=== PATIENT | female | born 1935 | race Caucasian/White ===

== ENCOUNTER 2018-05-31 10:30 | Inpatient (IN) ==
[2018-07-05] MEDS ORDERED: Chlorhexidine Gluconate 2% 1 Pack (2 Cloths) TOPICAL ONE (06:43)
[2018-07-05] MEDS ORDERED: Metoprolol Tartrate 25 MG Tablet PO ONE (06:43)
[2018-07-05] MEDS ORDERED: Chlorhexidine 4% Topical 120 APPLIC/120 ML Bottle TOPICAL SCH (06:45)
[2018-07-05] MEDS ORDERED: Vancomycin Inj 1,000 MG in Sodium Chlor 0.9% Inj 250 ML IV.SIG SCH (07:00)
[2018-07-05] MEDS ORDERED: Sodium Chlor 0.9% Inj 500 ML IV.SIG SCH (07:00)
[2018-07-05] MEDS ORDERED: ceFAZolin 2 GM Premix Inj 2 GM/50 ML PIGGYBACK IV.SIG SCH (07:00)
[2018-07-05] MEDS ORDERED: Bupivacaine/Epinephrine PF Inj 0.25% 10 ML Vial ONE (07:16)
[2018-07-05] MEDS ORDERED: Bupivacaine/Epinephrine Inj 0.25% 50 ML Vial ONE (07:16)
[2018-07-05] MEDS ORDERED: Succinylcholine Inj 100 MG/5 ML Syringe IV.PUSH ONE (08:59)
[2018-07-05] MEDS ORDERED: Phenylephrine/NS 1000 MCG/10ML Syringe IV.PUSH ONE (08:59)
[2018-07-05] MEDS ORDERED: Lidocaine PF 1% Inj 5 ML Syringe INFILTRATN ONE (08:59)
[2018-07-05] MEDS ORDERED: SODIUM CHLOR 0.9% IV.SIG SCH (09:00)
[2018-07-05] MEDS ORDERED: Sodium Chlor 0.9% Inj 40 ML, Bupivacaine Liposo PF 1.3% Inj 20 ML P-ARTICULR SCH ×2 (09:00)
[2018-07-05] MEDS ORDERED: TRANEXAMIC ACID IV.SIG SCH (09:00)
--- NOTE | 2018-07-05 11:37 | P.OP ---
- Preoperative Diagnosis (1) Osteoarthritis of right knee - Postoperative Diagnosis (1) Osteoarthritis of right knee Date of procedure: 07/05/18 Procedure: Right total knee replacement arthroplasty Anesthesia: GETA Surgeon: Jack Art MD Operation and Findings: EBL: 100 cc INDICATION: This patient presents with long-standing arthritis of the knee. Attachment record documents conservative measures. The patient now presents for surgical treatment. NOTE: Shabana Pat PA-C was present for the entire surgical procedure as my first aid nurse. In my medical opinion her skill and care was necessary for proper management of this patient. TOURNIQUET TIME: 69 minutes COMPANY: [employer] FEMUR: Size 7, right, posterior stabilized TIBIA: Size 6, fixed-bearing PATELLA: 35 mm POLYETHYLENE INSERT: 10 mm PROCEDURE: This patient was brought the operating room and anesthetized in the supine position. The patient was positioned supine on the table. The tourniquet was placed about the thigh, and the leg was scrubbed with alcohol followed by Hibiclens followed by ChloraPrep and draped sterilely. A timeout was done, and antibiotics were given. After exsanguination the tourniquet was inflated to 250 mmHg. An anterior incision was made and a median parapatellar arthrotomy was performed. The patella was released laterally and subluxed allowing freehand cut of the patella which was then sized. A metal cap was placed over the exposed patellar surface for protection. A army helicopter pilot hole was placed in the distal femur allowing a 5 valgus cut removing 10 mm from the distal femur. Anterior posterior and chamfer cuts were made. The posterior stabilize osteotomy was made. The attention was directed to the tibia. Retractors were positioned. The external alignment guide was used allowing the lateral tibia to be used as referencing guide and cut utilizing an oscillating saw taking care to avoid any injury to the surrounding soft tissues. This was sized properly. Trial reduction showed that the insert fit nicely. The patient had range of motion extension 0 flexion 125. A medial release was necessary. The bony surfaces prepared. On the back table 2 packets of methylmethacrylate were mixed. The components were cemented. Excess cement was removed. The tourniquet let down and hemostasis was controlled. The final plastic insert was inserted. Range of motion was the same as previously noted. A drain was brought through a separate stab incision. The arthrotomy was repaired with interrupted #1 Vicryl suture, subcutaneous tissue 2-0 Vicryl suture and skin with metallic rufina A sterile dressing was applied. Sponge counts, needle counts and instrument counts were all correct. The patient tolerated procedure well and was taken to recovery in satisfactory condition. FINDINGS: There was severe osteoarthritis. There was a 10 flexion contracture. We removed 1 mm more distally than normal. We ended up re- cutting the tibia removing a total of 12 mm from the lateral side. The final solution appeared to be excellent
[2018-07-05] MEDS ORDERED: Morphine Inj 4 MG/ML Vial IV.PUSH PRN (11:40)
[2018-07-05] MEDS ORDERED: Post-op Orders (for Pharmacy) OTHER STA (11:40)
[2018-07-05] MEDS ORDERED: Bisacodyl 10 MG Supp RECTAL PRN (11:40)
[2018-07-05] MEDS ORDERED: fentaNYL Citrate Inj 100 MCG/2 ML Ampul ONE (11:54)
[2018-07-05] MEDS ORDERED: *morphine SULFATE 4 MG/ML PERIprocedure ONLY ONE ×2 (12:00→12:50)
[2018-07-05] MEDS ORDERED: *Meperidine Inj 25 MG/ML Vial PERIprocedural Use ONLY ONE (12:05)
--- NOTE | 2018-07-05 13:13 | XR ---
EXAM DATE: 07/05/2018 12:45 PM EDT AGE/SEX: 83 years / Female INDICATIONS: Post op right knee replacement CLINICAL DATA: This is the patient's subsequent encounter. Patient reports that signs and symptoms h ave been present for 1 day and indicates a pain score of Nonresponsive. MEDICAL/SURGICAL HISTORY: None. . right knee replaced COMPARISON: No prior exams available for comparison. FINDINGS: Total knee arthroplasty is in satisfactory position. The alignment is anatomic. CONCLUSION: Postsurgical changes as above. Electronically signed by: Juan Alberto Vicente MD 07/05/2018 1:11 PM EDT
[2018-07-05] MEDS: oxyCODONE/Acetaminophen 10/325 Tablet PO PRN ×2 (14:33→21:16)
[2018-07-05] MEDS ORDERED: Temazepam 15 MG Capsule PO PRN (21:00)
[2018-07-05] MEDS: glipiZIDE 5 MG Tablet PO SCH (21:12)
[2018-07-05] MEDS: Senna/Docusate Sodium 8.6/50 MG Tablet PO SCH (21:12)
[2018-07-05] MEDS: Multivitamin/Minerals Therapeutic Tablet PO SCH (21:12)
[2018-07-06] MEDS: oxyCODONE/Acetaminophen 10/325 Tablet PO PRN ×4 (01:46→18:46)
[2018-07-06 06:52] LABS: Hematocrit 29.4 % (35.0-46.0); Hemoglobin 10.1 gm/dL (11.6-15.3)
[2018-07-06] MEDS: Potassium Chloride 10 MEQ ER Capsule PO SCH (08:55)
[2018-07-06] MEDS: Senna/Docusate Sodium 8.6/50 MG Tablet PO SCH ×2 (08:55→21:27)
[2018-07-06] MEDS: Multivitamin/Minerals Therapeutic Tablet PO SCH ×2 (08:55→21:27)
[2018-07-06] MEDS: dilTIAZem CD 240 MG Capsule PO SCH (08:56)
[2018-07-06] MEDS: glipiZIDE 5 MG Tablet PO SCH ×2 (08:56→21:28)
[2018-07-06] MEDS: Fenofibrate 48 MG Tablet PO SCH (08:57)
[2018-07-06] MEDS: Pantoprazole Sodium 20 MG DR Tablet PO SCH (08:57)
[2018-07-06] MEDS ORDERED: Non-Formulary Drug (Losartan-Hydrochlorothiazide [Losartan-Hydrochlorothiazide] 1 TAB) PO SCH (09:00)
--- NOTE | 2018-07-06 22:23 | P.PNOP ---
Subjective Interval history: Attempted to evaluate patient [id number] but she was in the total joint class. Brief review with her RN showed moderate pain as expected following surgical treatment. No other complaints of new radiating leg symptoms. NO new CP or SOB. Prefers d/c to SNF. Physical Exam Vital signs: Vital Signs 07/06/18 00:00 07/06/18 04:00 07/06/18 08:00 Temperature 98.1 F 98.0 F 98.5 F Pulse Rate 75 88 108 H Respiratory Rate 18 18 18 Blood Pressure 172/77 H 100/72 133/70 Pulse Oximetry 93 L 93 L 92 L 07/06/18 12:00 07/06/18 12:36 07/06/18 15:30 Temperature 98.1 F Pulse Rate 91 H Respiratory Rate 18 Blood Pressure 124/68 Pulse Oximetry 92 L 94 L 94 L 07/06/18 16:00 07/06/18 20:00 Temperature 98.3 F 97.8 F Pulse Rate 99 H 97 H Respiratory Rate 18 17 Blood Pressure 125/61 166/72 H Pulse Oximetry 94 L 95 Intake & Output 07/06/18 07/06/18 07/07/18 06:59 18:59 06:59 Intake Total 1200 / 1200 2160 / 2160 Balance 1200 / 1200 2160 / 2160 Weight 95 kg Intake: IV 1200 / 1200 900 / 900 LR 1000 mL Inj 1,000 ML @ 80 1000 / 1000 mls/hr IV.CONT .[id number] [facility] Rx# :[id number] LR 1000 mL Inj 1,000 ML @ 30 900 / 900 mls/hr IV.SIG .Q24H [facility] Rx#: [id number] Ancef Inj 1,000 MG In NS Inj 200 / 200 100 ML @ 200 mls/hr IV.SIG Q6H [facility] Rx#:[id number] Oral 1260 / 1260 Other: # Voids 3 4 Date of Last Bowel Movement 07/04/18 07/04/18 # Bowel Movements 0 Narrative: Exam unable to be performed as patient was in total joint class Results - Labs CBC & Chem 7: 07/06/18 05:47 Laboratory Results - last 24 hr 07/06/18 05:47 Hgb 10.1 L Hct 29.4 L - Procedures Right total knee arthroplasty Assessment and Plan - Ortho Post Op Day # 1 - Assessment and Plan pod#1 s/p R TKA Pt was not assessed as she was in the total joint class. RN states pain moderately controlled. Continue PO pain meds. Oxycodone for pain control. Eliquis as written. Hold dressing changes unless saturated. PT - WBAT RLE. TKA protocol. CKS when in bed for 3-4 weeks. D/C planning, likely SNF wednesday.
--- NOTE | 2018-07-06 22:24 | P.DS ---
Date of admission: 07/05/18 06:15 Primary care physician: No Primary Care Physician Attending physician on discharge: Jack Art Anticipated date of discharge: 07/08/18 Brief History from admission: Ms. Nixon is an 83-year-old female who has had ongoing right knee pain for approximately 6-7 months. She states this increased substantially after a fall. She pursued using ice and rest with no avail. She spoke to her primary care physician who ordered x-rays showing advanced arthritis. She was seen by Dr. Jack Art March 16, 2018. She was given a cortisone injection. She was not prescribed nonsteroidals as she was already on an anticoagulant. She began using her cane on a regular basis. Despite attempts at limited activity her function continued to decline. She discussed treatment options with her primary care physician who cleared her for surgical treatment. It was recommended that she pursue right total knee arthroplasty. Patient agreed and now presents for the above. DS: Diagnosis - Discharge Diagnosis (1) Osteoarthritis of right knee Status: Acute DS: Medications - Discharge Medications Prescriptions: apixaban [Eliquis] 2.5 mg PO BID #10 tab oxycodone-acetaminophen 1 tab PO Q4H PRN #42 tab PRN Reason: Acute Pain DS: Summary Hospital Course: Surgical treatment was performed on the day of admission without complication. The patient recovered well in PACU and was transferred to the orthopedic floor. IV and oral medications were supplied. The patient was compliant with physical therapy and all total knee precautions. After 3 days she was found to be stable and [facility]. She was encouraged to continue physical therapy, to elevate the operative limb and ice it 2-3 times daily, and to pursue a high fiber diet. She is given a prescription of oxycodone and instructed to return to her [facility]. - Time Spent with Patient Total time spent providing and/or coordinating discharge services: Greater than 30 minutes - Quality: VTE Deep Vein Thrombosis/Pulmonary Embolism Present on Admission: No Exam Vital signs: Vital Signs 07/06/18 00:00 07/06/18 04:00 07/06/18 08:00 Temperature 98.1 F 98.0 F 98.5 F Pulse Rate 75 88 108 H Respiratory Rate 18 18 18 Blood Pressure 172/77 H 100/72 133/70 Pulse Oximetry 93 L 93 L 92 L 07/06/18 12:00 07/06/18 12:36 07/06/18 15:30 Temperature 98.1 F Pulse Rate 91 H Respiratory Rate 18 Blood Pressure 124/68 Pulse Oximetry 92 L 94 L 94 L 07/06/18 16:00 07/06/18 20:00 Temperature 98.3 F 97.8 F Pulse Rate 99 H 97 H Respiratory Rate 18 17 Blood Pressure 125/61 166/72 H Pulse Oximetry 94 L 95 Intake & Output 07/06/18 07/06/18 07/07/18 06:59 18:59 06:59 Intake Total 1200 / 1200 2160 / 2160 Balance 1200 / 1200 2160 / 2160 Weight 95 kg Intake: IV 1200 / 1200 900 / 900 LR 1000 mL Inj 1,000 ML @ 80 1000 / 1000 mls/hr IV.CONT .[id number] [facility] Rx# :[id number] LR 1000 mL Inj 1,000 ML @ 30 900 / 900 mls/hr IV.SIG .Q24H [facility] Rx#: [id number] Ancef Inj 1,000 MG In NS Inj 200 / 200 100 ML @ 200 mls/hr IV.SIG Q6H [facility] Rx#:[id number] Oral 1260 / 1260 Other: # Voids 3 4 Date of Last Bowel Movement 07/04/18 07/04/18 # Bowel Movements 0 Narrative: Laying in bed With spouse/family NAD RLE Knee dressing intact, no new drainage, mild swelling +motor at distal, +sens, +nvi Neg homans - Constitutional no acute distress Results Procedures completed during hospitalization: Right total knee arthroplasty Labs on day of discharge: Labs from last 24 hours 07/06/18 05:47 Hgb 10.1 L Hct 29.4 L - Impressions ITS Impressions Knee X-Ray 07/05/18 11:40 CONCLUSION: Postsurgical changes as above. Discharge Plan - Discharge Disposition Patient Disposition: Discharge to SNF - Discharge Condition Condition: Good - Discharge Order Discharge Orders: Discharge Order (Routine); Ordered 07/08/18 Ordered By: Jack Art - Physicians Team Primary Care Provider: Primary Care Physici,No Attending Provider: Jack Art Other Providers: [employer] ; [facility] ; [facility] - Rxs /Orders / Referrals /Forms Prescriptions: New apixaban [Eliquis] 2.5 mg Tablet 2.5 mg PO BID Qty: 10 RF: 0 oxycodone-acetaminophen 10-325 mg Tablet 1 tab PO Q4H PRN (Reason: Acute Pain) Qty: 42 RF: 0 Continue albuterol sulfate [Ventolin HFA] 90 mcg/actuation Hfa Aerosol Inhaler 1 puff INHALATION Q4-6H PRN (Reason: Adequate Ventilation) calcium carbonate-vitamin D3 [Calcium 500 + D] 500 mg(1,250mg) -200 unit Tablet 1 tab PO BID diltiazem HCl [Tiazac] 240 mg Capsule,Extended Release 24 Hr 240 mg PO DAILY fenofibrate 54 mg Tablet 54 mg PO DAILY glipizide 5 mg Tablet 5 mg PO BID hydrocodone bitartrate 15 mg Capsule, Oral Only, Er 12hr 7.5 mg PO Q8HR PRN (Reason: Acute Pain) linagliptin [Tradjenta] 5 mg Tablet 5 mg PO DAILY losartan-hydrochlorothiazide 100-12.5 mg Tablet 1 tab PO DAILY omeprazole 20 mg Capsule,Delayed Release(Dr/Ec) 20 mg PO DAILY potassium chloride 10 mEq Capsule, Extended Release 10 meq PO DAILY rosuvastatin 40 mg Tablet 40 mg PO DAILY Discontinued apixaban [Eliquis] 5 mg Tablet 5 mg PO BID Ambulatory Orders / Order Sets / DME: Adjustable Commode 3-in-1 (1 each) (Routine) Location: Determined by Patient Ordered By: Jack Art Walker With Front Wheels (1 each) (Routine) Location: Determined by Patient Ordered By: Jack Art Referrals: Primary Care Cki,No [Primary Care Provider] - See Instructions - Discharge Instructions Patient Printed Instructions: Oxycodone/Acetaminophen (By mouth), Laxative, Stool Softeners (By mouth), Apixaban (By mouth), How to Choose and Use a Walker (GEN), Knee Immobilizer (ED), Knee Replacement (DC) Additional Instructions: Prescriptions given at time of discharge Do not change dressing Keep dressing dry and intact Follow up as directed, if you cannot keep your appt please call and reschedule If you notice signs or symptoms of infection please call the office - Post Discharge Care Plan Care Plan Goals: Discharge Care Plan Goals for Right Total Knee Replacement You have undergone knee replacement surgery. Your doctor replaced your painful joint with an artificial joint to relieve pain and restore movement. Here are some goals to help you heal well. Directions to Meet your Goals: 1. Activity & Exercises: * Take pain medicine as directed by your doctor. * Sit in chairs with arms. The arms make it easier for you to stand up or sit down. * Dont sit for more than 30 to 45 minutes at one time. * Nap if you are tired, but dont stay in bed all day. * Sleep with a pillow under your ankle, not your knee. Be sure to change the position of your leg during the night. * Wear the support stockings you were given in the hospital as directed by your surgeon. 2. Prevent Falls/Injury: The doan to successful recovery is movement with walking and exercising your knee as directed by your doctor. * Arrange your household to keep the items you need handy. Keep everything else out of the way. * Remove items that may cause you to fall, such as throw rugs and electrical cords. * Use nonslip bath mats, grab bars, an elevated toilet seat, and a shower chair in your bathroom * Sit on a shower stool or chair when you shower to keep from falling. * Until your balance, flexibility, and strength improve, use a cane, crutches, a walker, handrails, or someone to help you. * Keep your hands free by using a backpack, melany pack, apron, or pockets to carry things * Walk up and down stairs with support. Try one step at a time. Use the railing if possible. * Dont drive until your doctor says its OK. * Dont drive while you are taking opioid pain medicine. 3. Precautions: * Prevent infection. Any infection will need to be treated immediately. Call your doctor right away if you think you might have an infection. * Tell your dentist that you have an artificial joint and take antibiotics as prescribed before any dental work. * Tell all your healthcare providers about your artificial joint before any medical procedure. * Maintain a healthy weight. Get help to lose any extra pounds. Added body weight puts stress on the knee. * Your medications may include blood-thinning medicine to prevent blood clots or antibiotics to prevent infection-prevent any falls or cuts 4. Incision Care: * Prevent infection by washing your hands often. If an infection occurs, it will need to be treated right away. * Call your doctor right away if you think you may have an infection. Symptoms include a fever or an incision that leaks white, green, or yellow fluid. * Don't soak your incision in water until your doctor says its OK. This means no hot tubs, bathtubs, or swimming pools. * Follow your doctor's instructions for changing the dressing. * Dont rub the incision, or apply creams or lotions to it. * If you notice any redness or drainage around the bandage site, contact your surgeon's office immediately. 5. Follow-Up: Do Not miss your follow-up appointment. Keep up with all your appointments and yearly check ups When to call your doctor: Call your doctor right away if you have: Fever of 100.4F (38C) or higher, or as directed by your doctor Shaking chills Stiffness, or inability to move the knee Increased swelling in your leg Increased redness, tenderness, or swelling in or around the knee incision Drainage from the knee incision Increased knee pain Call 911: Call 911 right away if you have: Chest pain Shortness of breath Any pain or tenderness in your calf
[2018-07-07] MEDS: oxyCODONE/Acetaminophen 10/325 Tablet PO PRN ×5 (01:15→22:58)
[2018-07-07] MEDS: dilTIAZem CD 240 MG Capsule PO SCH (09:24)
[2018-07-07] MEDS: Potassium Chloride 10 MEQ ER Capsule PO SCH (09:24)
[2018-07-07] MEDS: Pantoprazole Sodium 20 MG DR Tablet PO SCH (09:24)
[2018-07-07] MEDS: Senna/Docusate Sodium 8.6/50 MG Tablet PO SCH ×2 (09:24→20:28)
[2018-07-07] MEDS: Fenofibrate 48 MG Tablet PO SCH (09:24)
[2018-07-07] MEDS: glipiZIDE 5 MG Tablet PO SCH ×2 (09:26→20:27)
[2018-07-07] MEDS: Multivitamin/Minerals Therapeutic Tablet PO SCH ×2 (09:27→20:27)
--- NOTE | 2018-07-07 12:50 | P.PNOP ---
Subjective Interval history: She is doing better today. Her pain medications 'help alot'. No new leg pain. Doing well with PT. Still plans on going to SNF tomorrow. Physical Exam Vital signs: Vital Signs 07/06/18 15:30 07/06/18 16:00 07/06/18 20:00 Temperature 98.3 F 97.8 F Pulse Rate 99 H 97 H Respiratory Rate 18 17 Blood Pressure 125/61 166/72 H Pulse Oximetry 94 L 94 L 95 07/07/18 00:00 07/07/18 07:48 07/07/18 11:54 Temperature 97.4 F L 81 F L 97.9 F Pulse Rate 107 H 16 L 100 H Respiratory Rate 16 16 16 Blood Pressure 153/53 H 148/59 H 145/65 H Pulse Oximetry 95 94 L 83 L Intake & Output 07/06/18 07/07/18 07/07/18 18:59 06:59 18:59 Intake Total 2160 / 2160 450 / 450 Balance 2160 / 2160 450 / 450 Intake: IV 900 / 900 LR 1000 mL Inj 1,000 ML @ 30 900 / 900 mls/hr IV.SIG .Q24H [facility] Rx#: [id number] Oral 1260 / 1260 450 / 450 Other: # Voids 4 2 Date of Last Bowel Movement 07/04/18 07/04/18 # Bowel Movements 0 Narrative: Sitting up in bed WIth spouse/family NAD RLE Knee dressing intact, no new drainage, mild swelling +motor at distal, +sens, +nvi Neg homans - Constitutional no acute distress Results - Labs CBC & Chem 7: 07/06/18 05:47 - Procedures Right total knee arthroplasty Assessment and Plan - Ortho Post Op Day # 2 - Assessment and Plan pod#2 s/p R TKA Doing better today. Pain comes and goes but PO meds helpful. Continue PO pain meds. Oxycodone for pain control. Eliquis as written. Hold dressing changes unless saturated. PT - WBAT RLE. TKA protocol. CKS when in bed for 3-4 weeks. D/C planning, likely SNF wednesday.
[2018-07-08] MEDS: oxyCODONE/Acetaminophen 10/325 Tablet PO PRN ×2 (04:29→13:08)
--- NOTE | 2018-07-08 08:03 | P.PNOP ---
Subjective Interval history: She continues to improve. She slept well last night. No new leg pain. PO meds help. Ready for discharge to SNF today. Physical Exam Vital signs: Vital Signs 07/07/18 11:54 07/07/18 15:45 07/07/18 20:00 Temperature 97.9 F 97.9 F 99.6 F Pulse Rate 100 H 77 89 Respiratory Rate 16 16 20 Blood Pressure 145/65 H 132/60 145/60 H Pulse Oximetry 83 L 90 L 94 L 07/08/18 00:00 Temperature 98.9 F Pulse Rate 87 Respiratory Rate 18 Blood Pressure 131/55 L Pulse Oximetry 94 L Intake & Output 07/07/18 07/08/18 07/08/18 18:59 06:59 18:59 Intake Total 1700 / 1700 240 / 240 Output Total 450 / 450 Balance 1700 / 1700 -210 / -210 Intake: Oral 1700 / 1700 240 / 240 Output: Urine 450 / 450 Other: # Voids 4 # Urine Diapers 1 Date of Last Bowel Movement 07/04/18 07/04/18 # Bowel Movements 0 Narrative: Laying in bed With spouse/family NAD RLE Knee dressing intact, no new drainage, mild swelling +motor at distal, +sens, +nvi Neg homans - Constitutional no acute distress Results - Labs CBC & Chem 7: 07/06/18 05:47 Laboratory Results - last 24 hr 07/05/18 06:50 MTS Gel Crossmatch See Detail - Procedures Right total knee arthroplasty Assessment and Plan - Ortho Post Op Day # 3 - Assessment and Plan pod#3 s/p R TKA She continues to improve. Ok to d/c to SNF today after PT. Continue PO pain meds. Oxycodone for pain control. Eliquis as written. Hold dressing changes unless saturated. PT - WBAT RLE. TKA protocol. CKS when in bed for 3-4 weeks. F/U in 2 weeks as scheduled.
[2018-07-08] MEDS: Fenofibrate 48 MG Tablet PO SCH (09:22)
[2018-07-08] MEDS: glipiZIDE 5 MG Tablet PO SCH (09:22)
[2018-07-08] MEDS: Pantoprazole Sodium 20 MG DR Tablet PO SCH (09:22)
[2018-07-08] MEDS: dilTIAZem CD 240 MG Capsule PO SCH (09:22)
[2018-07-08] MEDS: Potassium Chloride 10 MEQ ER Capsule PO SCH (09:23)
[2018-07-08] MEDS: Senna/Docusate Sodium 8.6/50 MG Tablet PO SCH (09:23)
[2018-07-08] MEDS: Multivitamin/Minerals Therapeutic Tablet PO SCH (09:23)
[2018-07-08 13:13] VITALS: RESP 17
[2018-07-08 17:20] VITALS: BP 109/50; PULSE 81; TEMP 99.6; O2SAT 91
== END 2018-07-08 18:32 ==
LOC: HSDI 07-05 06:15 → N06 07-05 13:31
PROVIDERS: ADMIT Orthopaedic Surgery Orthopaedic Surgery of the Spine; ATTEND Orthopaedic Surgery Orthopaedic Surgery of the Spine